=== PATIENT | female | born 1940 | race Two or more races ===

== ENCOUNTER 2022-07-29 19:49 | Inpatient (IN) | payer MEDICARE, MEDICAID ==
[~2022-07-29] VITALS: Ht 157.5 cm; Wt 70.5 kg
[2022-07-29 20:52] LABS: Basophils # (auto) 0.1 10 ^3/uL (0-0.2); Eosinophils # (auto) 0.3 10 ^3/uL (0-0.8); Eosinophils % (auto) 3.3 % (0.0-7.0); Hematocrit 38.3 % (36.0-46.0); Hemoglobin 12.9 g/dL (12.2-16.2); Lymphocytes # (auto) 3.1 10 ^3/uL (0.4-5.4); Lymphocytes % (auto) 37.2 % (10.0-50.0); Mean Corpuscular Hemoglobin 28.3 pg (28.0-32.0); Mean Corpuscular Hgb Conc. 33.7 g/dL (32.0-36.0); Monocytes # (auto) 0.7 10 ^3/uL (0-1.3); Monocytes % (auto) 8.6 % (0.0-12.0); Neutrophils # (auto) 4.1 10 ^3/uL (1.6-8.6); Neutrophils % (auto) 49.9 % (37.0-80.0); Nucleated Red Blood Cells % 0.2 %; Red Blood Cells 4.56 10^6/uL (4.0-5.20); Red Cell Distribution Width 14.2 % (11.8-14.3); White Blood Cell 8.3 10^3/uL (4.4-10.8)
[2022-07-29 21:11] LABS: Albumin 3.8 g/dL (3.4-5.0); Calcium 9.5 mg/dL (8.5-10.1); Potassium 4.8 mmol/L (3.5-5.1)
[2022-07-29 21:20] LABS: BUN/Creatinine Ratio 25.7 (10.0-20.0); Bilirubin, Total 0.7 mg/dL (0.2-1.0); Total Protein 7.3 g/dL (6.4-8.2)
[2022-07-30] MEDS ORDERED: ONDANSETRON HCL 4 MG/2 ML VIAL IV PRN (05:15)
[2022-07-30] MEDS ORDERED: DEXTROSE (50%) 50ML SYRG IV PRN (05:15)
[2022-07-30] MEDS ORDERED: HYDROcodone-ACET 5/325MG TAB PO PRN (05:15)
[2022-07-30] MEDS: ACCU-CHEK COMFORT CURVE STRIP VI SCH ×4 (08:07→22:00)
[2022-07-30] MEDS: InsuLIN REG 1unit/0.01ml Soln (100units/ml) SC SCH ×3 (08:08→17:00)
[2022-07-30] MEDS ORDERED: GABAPENTIN 300 MG CAP PO SCH (10:00)
[2022-07-30] MEDS ORDERED: PANTOPRAZOLE 40 MG TAB PO SCH (10:00)
[2022-07-30] MEDS: LOSARTAN POTASSIUM 50 MG TAB PO SCH (10:44)
[2022-07-30] MEDS: METOPROLOL SUCCINATE XL 50 MG TAB PO SCH (10:44)
[2022-07-30] MEDS: ALLOPURINOL 100 MG TAB PO SCH (10:45)
[2022-07-30] MEDS: FUROSEMIDE 40 MG TAB PO SCH (10:45)
[2022-07-30] MEDS ORDERED: MORPHINE SULFATE INJ 2 MG/ml SYRG IV PRN (11:30)
[2022-07-30 12:48] LABS: Urine Bacteria NONE SEEN /hpf (None Seen); Urine Blood Negative /uL (Negative); Urine Specific Gravity 1.005 (1.001-1.035); Urine WBC 1 /hpf (0 - 5)
[2022-07-30 20:15] LABS: Folate (Folic Acid) > 24.00 ng/mL (5.38-24)
[2022-07-30] MEDS ORDERED: ROSU1TAB15 PO (22:55)
[2022-07-30] MEDS ORDERED: ALLO100T PO (22:55)
[2022-07-30] MEDS ORDERED: HYDR1TAB97 PO (22:55)
[2022-07-30] MEDS ORDERED: METO25TA93 PO (22:55)
[2022-07-30] MEDS ORDERED: METF-370 PO (22:55)
[2022-07-30] MEDS ORDERED: FAMO40TA7 PO (22:55)
[2022-07-30] MEDS ORDERED: GABA-339 PO (22:55)
[2022-07-30] MEDS ORDERED: DAPA1TAB4 PO (22:55)
[2022-07-31] MEDS: ATORVASTATIN 20 MG TAB PO SCH ×2 (00:09→21:30)
[2022-07-31] MEDS: GABAPENTIN 300 MG CAP PO SCH ×3 (00:09→21:31)
[2022-07-31] MEDS: InsuLIN REG 1unit/0.01ml Soln (100units/ml) SC SCH ×5 (00:13→21:41)
[2022-07-31 05:40] VITALS: BP 112/67
[2022-07-31 06:43] LABS: Hematocrit 39.8 % (36.0-46.0); Hemoglobin 13.4 g/dL (12.2-16.2); Mean Corpuscular Hemoglobin 28.5 pg (28.0-32.0); Mean Corpuscular Hgb Conc. 33.7 g/dL (32.0-36.0); Mean Corpuscular Volume 84.6 fL (80.0-100.0); Red Blood Cells 4.71 10^6/uL (4.0-5.20); Red Cell Distribution Width 14.3 % (11.8-14.3)
[2022-07-31] MEDS: ACCU-CHEK COMFORT CURVE STRIP VI SCH ×4 (06:44→21:38)
[2022-07-31 06:48] LABS: Band Neutrophils % (manual) 0; Basophils % (manual) 0 (0.0-2.0); Blast Cells 0; Metamyelocytes % 0; Myelocytes % 0; Promyelocytes % 0; Reactive Lymphocytes 0
[2022-07-31 07:03] LABS: BUN/Creatinine Ratio 28.4 (10.0-20.0); Calcium 9.7 mg/dL (8.5-10.1); Potassium 4.2 mmol/L (3.5-5.1)
[2022-07-31 07:55] LABS: Eosinophils % (manual) 2 (0-7); Lymphocytes % (manual) 32 (10.0-50.0); Monocytes % (manual) 5 (0-12)
[2022-07-31 08:30] VITALS: BP 134/65
[2022-07-31] MEDS: FUROSEMIDE 40 MG TAB PO SCH (11:22)
[2022-07-31] MEDS: LOSARTAN POTASSIUM 50 MG TAB PO SCH (11:22)
[2022-07-31] MEDS: METOPROLOL SUCCINATE XL 50 MG TAB PO SCH (11:23)
[2022-07-31] MEDS: ALLOPURINOL 100 MG TAB PO SCH (11:23)
[2022-07-31] MEDS: ACETAMINOPHEN 325 MG TAB PO PRN ×2 (11:28→21:31)
[2022-07-31 12:51] VITALS: BP 119/77
[2022-07-31 16:56] VITALS: BP 119/58
[2022-07-31 22:00] VITALS: BP 114/59
[2022-08-01 05:00] VITALS: BP 97/46
[2022-08-01] MEDS: ACCU-CHEK COMFORT CURVE STRIP VI SCH ×2 (05:56→11:30)
[2022-08-01] MEDS: InsuLIN REG 1unit/0.01ml Soln (100units/ml) SC SCH ×2 (05:58→12:59)
[2022-08-01 06:08] VITALS: BP 124/63
[2022-08-01 08:00] VITALS: BP 100/50
[2022-08-01 08:57] VITALS: BP 100/50
[2022-08-01] MEDS: GABAPENTIN 300 MG CAP PO SCH (09:38)
[2022-08-01] MEDS: ALLOPURINOL 100 MG TAB PO SCH (09:40)
[2022-08-01] MEDS: METOPROLOL SUCCINATE XL 50 MG TAB PO SCH (09:40)
[2022-08-01] MEDS: LOSARTAN POTASSIUM 50 MG TAB PO SCH (09:40)
[2022-08-01] MEDS: FUROSEMIDE 40 MG TAB PO SCH (10:00)
[2022-08-01] MEDS ORDERED: HYDR-4902 PO (11:56)
[2022-08-01 12:43] VITALS: BP 120/67
[2022-08-01 13:28] VITALS: BP 100/50
== END 2022-08-01 14:29 | disposition home or self-care (01) | DRG 605 ==
LOC: ER 19:49 → OVERFLOW 07-30 05:19 → WEST WING 07-30 21:14
PROVIDERS: ADMIT Nurse Practitioner; ATTEND Internal Medicine Pulmonary Disease
DX: S00.03XA Contusion of scalp, initial encounter (principal); S00.11XA Contusion of right eyelid and periocular area, initial encounter; M25.561 Pain in right knee; I10 Essential (primary) hypertension; W18.39XA Other fall on same level, initial encounter; Y93.89 Activity, other specified; Y92.89 Other specified places as the place of occurrence of the external cause; Y99.8 Other external cause status
CPT/HCPCS: 36415; 70450; 70551; 73562; 80048; 80053; 81001; 82607; 82746; 82962; 84443; 85007; 85025; 85027; 93005; 93306; 93886; 95819; 97110; 97116; 97163; 97530; G0378; J1815